=== PATIENT | female | born 2000 | race Two or more races ===

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

== ENCOUNTER 2018-01-02 19:05 | Outpatient (CLI) | payer MEDICAID ==
[~2018-01-02] VITALS: Ht 160 cm; Wt 73.0 kg
[~2018-01-02 19:05] MED LIST changes: +CEPH500T7 PO; +PREN-127 PO
[2018-01-02 19:11] VITALS: BP 133/82; Ht 160 cm; Wt 73.0 kg
[2018-01-02] MEDS ORDERED: NIFEdipine 10 MG CAP PO ONE (21:40)
== END 2018-01-02 21:36 | disposition home or self-care (01) ==
LOC: UNDOADMOB 19:05 → OB 19:05 → L&D 19:05 → OB 19:17 → UNDOADMOB 19:17 → UNDODISOB 21:36 → L&D 21:36
PROVIDERS: ATTEND Obstetrics & Gynecology
DX: O47.03 False labor before 37 completed weeks of gestation, third trimester (principal); Z3A.28 28 weeks gestation of pregnancy
CPT/HCPCS: 81001; 82731; A4353; G0463; 99213; G0378; G0379

== ENCOUNTER → 2018-03-14 | Outpatient (REF) | payer MEDICAID ==
[2018-01-02 19:11] VITALS: BMI 28.5
== END ==
LOC: ZZSENDIN 15:16
PROVIDERS: ATTEND Physician Assistant
DX: N89.8 Other specified noninflammatory disorders of vagina (principal)
CPT/HCPCS: 84112

== ENCOUNTER 2018-03-24 00:03 | Outpatient (CLI) | payer MEDICAID ==
[~2018-03-24] VITALS: Ht 170.2 cm; Wt 73.9 kg
[2018-03-24] MEDS ORDERED: LR(*) 1000 ML BAG 1,000 ML IV PRN (00:05)
[2018-03-24] MEDS ORDERED: OXYTOCIN 30 UNIT/D5LR 500 ML 500 ML IV PRN (00:05)
[2018-03-24] MEDS ORDERED: fentaNYL CITR 100 MCG/2 ML AMP IVP PRN (00:05)
[2018-03-24 00:31] VITALS: BP 128/90; Ht 170.2 cm; Wt 73.9 kg
[2018-03-24] MEDS ORDERED: LOR5/325 PO (23:26)
[2018-03-24] MEDS ORDERED: IBUP800T37 PO (23:26)
== END 2018-03-24 03:30 | disposition home or self-care (01) ==
LOC: OB 00:03 → UNDOADMOB 00:03 → L&D 00:03 → OB 00:03 → INTOOBSV 00:03 → OB 00:03 → L&D 03:30 → UNDODISOB 03:30 → EDSTATUS 11:18
PROVIDERS: ATTEND Student in an Organized Health Care Education/Training Program
DX: O26.893 Other specified pregnancy related conditions, third trimester (principal); Z3A.39 39 weeks gestation of pregnancy
CPT/HCPCS: 59025; G0463; 99213

== ENCOUNTER 2018-03-24 15:07 | Inpatient (IN) | payer MEDICAID ==
[~2018-03-24] VITALS: Ht 160.3 cm; Wt 73.5 kg
[2018-03-24 15:20] VITALS: Ht 160.3 cm; Wt 73.5 kg
[2018-03-24] MEDS ORDERED: OXYTOCIN 30 UNIT/D5LR 500 ML 500 ML IV PRN (17:57)
[2018-03-24] MEDS ORDERED: FAMOTIDINE(*) 20MG/50ML PREMIX 50 ML IVPB PRN (17:57)
[2018-03-24] MEDS ORDERED: LR(*) 1000 ML BAG 1,000 ML IV SCH (17:57)
[2018-03-24] MEDS ORDERED: LIDOCAINE 1% LOCAL 300 MG/30ML INJ PRN (18:00)
[2018-03-24] MEDS ORDERED: FLUSH 10 ML SYR IVP PRN (18:00)
[2018-03-24] MEDS ORDERED: METOCLOPRAMIDE 10 MG/2 ML SDV IVP PRN (18:00)
[2018-03-24] MEDS ORDERED: LIDOCAINE/SOD BICARB 8.4% SYR SC PRN (18:00)
[2018-03-24 18:25] LABS: PLATELET COUNT, AUTOMATED 246 K/uL (150-450)
[2018-03-24] MEDS: fentaNYL CITR 100 MCG/2 ML AMP IVP PRN ×2 (19:37→20:44)
--- NOTE | 2018-03-24 19:44 | History & Physical ---
History of Present Illness EDC per LMP: Mar 31, 2018 Chief Complaint Labor History of Present Illness 17yo at 39w0d presents with worsening contractions. She has been having contractions for nearly 24hrs. 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 Her cervix did not change, but she was thought to be in latent labor. She was sent home and returned this afternoon with change in her cervix. She is having some bloody mucus discharge. No LOF. No preeclampsia symptoms. +FM. PNR reviewed. PNC by [facility]. GBS negative. History Patient's Blood Type: O Negative Rubella Status: Immune Group B Strep Screen: Negative Obstetrical History: Primip Past Medical History: PMH: None PSH: None Allergies: Coded Allergies: Penicillins (Verified Allergy, Intermediate, RASH AND THROAT TIGHTNESS, 09/30/17) Uncoded Allergies: RINATIN (Allergy, Unknown, 01/16/14) Social History: No T/E/D. Med Rec Home Meds Reported Medications Vits W-Ca,Fe,Fa(<1MG) ( VITAMINS) 1 Each Tablet, 1 EACH PO DAILY, TAB 09/30/17 Review of Systems Constitutional: No Fever Neurological: No Syncope Eyes: No Vision Change Cardiovascular: No Chest Pain Respiratory: No Shortness of Breath Gastrointestinal: No Nausea, No Vomiting, No Diarrhea Genitourinary: No Dysuria Musculoskeletal: No Pain Psychiatric: No Depression, No Anxiety Exam General Exam Vital Signs VS reviewed General Apperance: Alert/Awake/No Acute Distress Neuro: No Gross deficits Eyes: Normal Extraocular Movement & Vison Cardiovascular: Regular Rate and Rhythm Respiratory: No Respiratory Distress, Clear to Auscultation Abdomen: Gravid - Non-Tender : Normal Musculoskeletal: No Weakness/Pain Extremities: No Cyanosis,Clubbing or Edema Integumentary: Skin Intact without Lesions or Rash Psychological: Alert & Oriented X3, Appropriate Mood & Affect Cervical Dialation: 6 Cervical Effacement (%): 100 Cervical Consistency: Soft Cervical Position: Mid Station: -1 Presentation: Vertex Uterine Contractions(Q min): 3 Uterine Contraction Strength: Moderate UC Resting Tone: Soft Fetus Feeling Movement?: Yes FHT Category: I Medical Decision Making Data Points Result Diagram: 03/24/18 1810 Pre-Admit Course Medical Record Review: Yes VTE Prophylasis: Adult Deep Vein Thrombosis/Pulmonary: No Assessment and Plan Problems: (1) Spontaneous onset of labor Assessment & Plan: 17yo at 39w0d presents in labor. She is 6cm. Will allow to labor on her own. She is contemplating epidural but not sure if she desires. Will AROM if needed. Anticipate . (2) Rh negative status during Assessment & Plan: Rhophylac evaluation . (3) 39 weeks gestation of Problem Qualifiers (1) Rh negative status during : Trimester: third trimester Qualified Codes: O09.893 - Supervision of other high risk pregnancies, third trimester; Z67.91 - Unspecified blood type, rh negative RAAM SOTO MD Mar 24, 2018 19:44
--- NOTE | 2018-03-24 20:07 | Labor Progress Note ---
Labor Subjective Progress Notes Subjective Pt is feeling some pressure. Increased pain with contractions. She did get one dose of fentanyl that is helping. Labor Objective Vaginal Discharge/Fluid?: Clear Fluid Cervical Dialation: 8 Cervical Effacement (%): 100 Cervical Position: Mid Station: 0 Presentation: Vertex Uterine Contractions(Q min): 3 Uterine Contraction Strength: Strong UC Resting Tone: Soft Fetus FHT Category: I General Exam General Appearance: Alert/Awake/No Acute Distress Abdomen: Gravid - Non-Tender : Normal Musculoskeletal: No Weakness/Pain Extremities: No Cyanosis,Clubbing or Edema Integumentary: Skin Intact without Lesions or Rash Psychological: Alert & Oriented X3, Appropriate Mood & Affect Other Result Diagram: 03/24/18 1810 Assessment and Plan Problems: (1) Spontaneous onset of labor Assessment & Plan: Pt now 8/100. AROM with clear fluid. Anticipate . (2) Rh negative status during Assessment & Plan: Rhophylac evaluation . (3) 39 weeks gestation of Problem Qualifiers (1) Rh negative status during : Trimester: third trimester Qualified Codes: O09.893 - Supervision of other high risk pregnancies, third trimester; Z67.91 - Unspecified blood type, rh negative ARAM SOTO MD Mar 24, 2018 20:07
--- NOTE | 2018-03-24 23:19 | OB Delivery Note ---
Delivery Note Vaginal Delivery Type: Spont. Vaginal Delivery Delivery Date: Mar 24, 2018 Delivery Time: 22:54 Estimated Gestational Age(wks): 39.0 Length of Labor Stage II (hrs): 0.4 Labor Stage III (minutes): 5 Delivery Anesthesia: Local Sex: Male Apgars: 1 Minute (8), 5 Minute (9) Repair Needed: 2nd Degree Estimated Blood Loss: 300 In[address] Fitter in Attendence: ARAM Larson MD Mar 24, 2018 23:19
[2018-03-24] MEDS ORDERED: BENZOCAINE 20% 60 ML BTL TP PRN (23:25)
[2018-03-24] MEDS ORDERED: GLYCERIN/WITCH HAZEL LEAF 1 PK TOP PRN (23:25)
[2018-03-24] MEDS ORDERED: HYDROCORTISONE 2.5% CR 30GM TB PR PRN (23:25)
[2018-03-24] MEDS ORDERED: ACETAMINOPHEN 325 MG TAB PO PRN (23:25)
[2018-03-24] MEDS ORDERED: MEASLES,MUMP,RUBELLA VAC 0.5ML SC ONE (23:25)
[2018-03-24] MEDS ORDERED: INFLUENZA VIRUS VAC 0.5ML SYR IM ONLY ONE (23:25)
[2018-03-24] MEDS ORDERED: DIPHTH/TETANUS/ACEL. PERTUSSIS IM ONE (23:25)
[2018-03-24] MEDS ORDERED: LANOLIN OINT 7 GM TUBE TP PRN (23:25)
[2018-03-24] MEDS ORDERED: APAP/HYDROCODONE 325/5 TAB PO PRN (23:25)
[2018-03-24] MEDS ORDERED: MAGNESIUM HYDROXIDE* 30ML UDCP PO PRN (23:25)
[2018-03-24] MEDS ORDERED: IBUP800T37 PO (23:26)
[2018-03-24] MEDS ORDERED: LOR5/325 PO (23:26)
[2018-03-25] MEDS ORDERED: IBUPROFEN 800 MG TAB PO SCH (01:00)
[2018-03-25 02:50] VITALS: BP 105/56
--- NOTE | 2018-03-25 07:30 | OB/GYN Progress Note ---
OB Subjective Progress Notes Subjective Doing well. Pain controlled with oral medications. Tolerating regular diet. Ambulating. Voiding. Normal lochia. No preeclampsia symptoms. OB Objective Physical Exam Vital Signs Date Time Temp Pulse Resp B/P (MAP) Pulse Ox O2 Delivery O2 Flow Rate FiO2 03/25/18 02:50 97.7 109 18 105/56 (72) Room Air General Appearance: Alert/Awake/No Acute Distress Neurological: No Gross deficits Eyes: Normal Extraocular Movement & Vison Cardiovascular: Normal Rhythm & Peripheral Pulses, Regular Rate and Rhythm Respiratory: No Respiratory Distress, Clear to Auscultation Abdomen: Soft, Non-Tender, Non-Distended, Fundus Firm Musculoskeletal: No Weakness/Pain Extremities: No Cyanosis,Clubbing or Edema Integumentary: Skin Intact without Lesions or Rash Psychological: Alert & Oriented X3, Appropriate Mood & Affect Result Diagram: 03/24/18 1810 Assessment and Plan Problems: (1) care and examination immediately after delivery Assessment & Plan: PPD#1 s/p . Continue routine orders and anticipate discharge tomorrow. (2) Rh negative status during Assessment & Plan: Baby is Rh positive, will get Rhophylac today. Problem Qualifiers (1) Rh negative status during : Trimester: third trimester Qualified Codes: O09.893 - Supervision of other high risk pregnancies, third trimester; Z67.91 - Unspecified blood type, rh negative ARAM SOTO MD Mar 25, 2018 07:30
[2018-03-25] MEDS: IBUPROFEN 800 MG TAB PO SCH ×3 (08:22→17:56)
[2018-03-25] MEDS: DOCUSATE CALCIUM 240 MG CAP PO SCH ×2 (08:22→21:43)
[2018-03-25 09:04] VITALS: BP 115/70
[2018-03-25 11:22] VITALS: BP 96/54
[2018-03-25 16:20] VITALS: BP 92/54
--- NOTE | 2018-03-25 18:34 | DELIVERY NOTE ---
DELIVERY DATE: March 24, 2018 SURGEON: Annette Warren MD ANESTHESIA: Local infiltration of 1% lidocaine. PREOPERATIVE DIAGNOSIS Intrauterine at 39 weeks zero days, presenting in spontaneous active labor. POSTOPERATIVE DIAGNOSES 1. Intrauterine at 39 weeks zero days, presenting in spontaneous active labor. 2. Delivery of a viable male at 2254 hours weighing 7lb 7oz with Apgars of 8 at one minute and 9 at five minutes. PROCEDURES 1. Spontaneous vaginal delivery. 2. Repair of second-degree perineal laceration. ESTIMATED BLOOD LOSS 300 mL INDICATIONS FOR PROCEDURE This patient is a 17-year-old G1, P0, who presented at 39 weeks zero days in spontaneous active labor. Upon admission to Labor and Delivery, she was noted to be 4 cm dilated. She progressed to 6 cm on her own and was, therefore, admitted. She was able to progress to 8 cm, 100, and zero station, at which time an amniotomy was performed with return of clear fluid. She was then able to progress on her own and was noted to be complete at 2230 hours. She was then allowed to start pushing and bring the infant's vertex to the perineum. PROCEDURE The patient was properly identified and noted to be in the dorsal lithotomy position. She was asked to push. She was able to deliver the infant's vertex spontaneously in the LUDMILA position over an intact perineum. A nuchal cord was checked, but not noted. The posterior shoulder delivered easily, followed by the anterior shoulder. The remainder of the then easily delivered. The had spontaneous cry and spontaneous movement of all four extremities. The oropharynx and nasopharynx were bulb suctioned. The was dried, stimulated, and passed to the mother's abdomen where nursing personnel was in attendance. After two minutes, the cord was clamped times two and cut by the father of the baby. Cord blood was then obtained and passed off the table. Pitocin was started in the IV fluids to help firm the uterus. The placenta subsequently delivered spontaneously intact at 2259 hours. Examination of the cervix, vaginal vault, and perineum revealed a second-degree perineal laceration, which was repaired after infiltration of 1% lidocaine with a 3-0 Vicryl suture. The patient tolerated this procedure well and recovered in Labor and Delivery with her . All sponge and needle counts were correct at the end of this procedure. [facility]
[2018-03-25 19:57] VITALS: BP 119/61
[2018-03-25 23:31] VITALS: BP 109/60
[2018-03-26] MEDS: IBUPROFEN 800 MG TAB PO SCH ×2 (00:28→10:30)
[2018-03-26 04:06] VITALS: BP 102/60
--- NOTE | 2018-03-26 07:49 | OB/GYN Progress Note ---
OB Subjective Progress Notes Subjective Pt is doing well. She is tired, but no other concerns. Pain controlled with oral medications. Tolerating regular diet. Ambulating. Voiding. Normal lochia. No preeclampsia symptoms. OB Objective Physical Exam Vital Signs Date Time Temp Pulse Resp B/P (MAP) Pulse Ox O2 Delivery O2 Flow Rate FiO2 03/26/18 04:06 97.2 94 14 102/60 (74) 94 Room Air General Appearance: Alert/Awake/No Acute Distress Neurological: No Gross deficits Eyes: Normal Extraocular Movement & Vison Cardiovascular: Normal Rhythm & Peripheral Pulses, Regular Rate and Rhythm Respiratory: No Respiratory Distress, Clear to Auscultation Abdomen: Soft, Non-Tender, Non-Distended, Fundus Firm Musculoskeletal: No Weakness/Pain Extremities: No Cyanosis,Clubbing or Edema Integumentary: Skin Intact without Lesions or Rash Psychological: Alert & Oriented X3, Appropriate Mood & Affect Result Diagram: 03/24/18 1810 Assessment and Plan Problems: (1) care and examination immediately after delivery Assessment & Plan: PPD#2. Meeting milestones. Desires discharge to home today. Discussed routine expectations. Questions answered. Follow up in clinic in 2wks for check. (2) Rh negative status during Assessment & Plan: Rhophylac given . Problem Qualifiers (1) Rh negative status during : Trimester: third trimester Qualified Codes: O09.893 - Supervision of other high risk pregnancies, third trimester; Z67.91 - Unspecified blood type, rh negative ARAM SOTO MD Mar 26, 2018 07:49
--- NOTE | 2018-03-26 07:50 | OB/GYN Discharge Summary ---
Discharge Summary Reason for Hosp/Final Diag: (1) care and examination immediately after delivery Hospital Course & Plan: PPD#2. Meeting milestones. Desires discharge to home today. Discussed routine expectations. Questions answered. Follow up in clinic in 2wks for check. (2) Rh negative status during Hospital Course & Plan: Rhophylac given . Lates Vital Signs Vital Signs Date Time Temp Pulse Resp B/P (MAP) Pulse Ox O2 Delivery O2 Flow Rate FiO2 03/26/18 04:06 97.2 94 14 102/60 (74) 94 Room Air Weight (Pounds): 162 Result Diagram: 03/24/18 1810 Condition: Improved Discharge: Home, Self Snf Meds Active Scripts Hydrocodone Bit/Acetaminophen (HYDROCODON-ACETAMINOPHEN 5-325) 1 Each Tablet, 1 EACH PO Q4-6H PRN for pain, #20 TAB 0 Refills Prov:ARAM SOTO MD 03/24/18 Reported Medications Vits W-Ca,Fe,Fa(<1MG) ( VITAMINS) 1 Each Tablet, 1 EACH PO DAILY, TAB 09/30/17 Follow up Referrals: DESKTOP SUPPORT TECHNICIAN - In Two Weeks @ [facility] Discharge Diet: As Tolerates Discharge Activity: Pelvic Rest Problem Qualifiers (1) Rh negative status during : Trimester: third trimester Qualified Codes: O09.893 - Supervision of other high risk pregnancies, third trimester; Z67.91 - Unspecified blood type, rh negative ARAM SOTO MD Mar 26, 2018 07:50
[2018-03-26 08:00] VITALS: BP 104/60
[2018-03-26] MEDS: DOCUSATE CALCIUM 240 MG CAP PO SCH (10:30)
== END 2018-03-26 11:06 | disposition home or self-care (01) | DRG 807 ==
LOC: OB 15:07
PROVIDERS: ADMIT Obstetrics & Gynecology; ATTEND Obstetrics & Gynecology
PROC: 10E0XZZ Delivery of Products of Conception, External Approach (ICD-10-PCS; principal; 2018-03-24)
PROC: 0KQM0ZZ Repair Perineum Muscle, Open Approach (ICD-10-PCS; 2018-03-24)
PROC: 10907ZC Drainage of Amniotic Fluid, Therapeutic from Products of Conception, Via Natural or Artificial Opening (ICD-10-PCS; 2018-03-24)
PROC: 3E0334Z Introduction of Serum, Toxoid and Vaccine into Peripheral Vein, Percutaneous Approach (ICD-10-PCS; 2018-03-25)
DX: O36.0130 Maternal care for anti-D [Rh] antibodies, third trimester, not applicable or unspecified (principal); Z37.0 Single live birth; O70.1 Second degree perineal laceration during delivery; Z3A.39 39 weeks gestation of pregnancy
CPT/HCPCS: 36415; 85025; 85461; 86703; 86850; 86900; 86901; J2791; J3010